=== PATIENT | male | born 1970 | race Caucasian/White ===

== ENCOUNTER 2021-03-31 06:29 | Emergency (ER) | payer MEDICAID, SELFPAY ==
[2021-03-31 07:27] VITALS: BP 165/104; PULSE 80; RESP 14; TEMP 36.8; O2SAT 98; BMI 25.3
--- NOTE | 2021-03-31 07:35 | ED_ITS ---
HPI - General Adult General Chief complaint: General Medical Stated complaint: swollen face Time Seen by Provider: 03/31/21 07:35 Source: patient Mode of arrival: ambulatory Limitations: no limitations History of Present Illness HPI narrative: Patient with no history of allergies on lisinopril for a long time noticed swelling of the lower lip since midnight . Also personal training of sore throat and postnasal drip for few weeks. No fever no chills no shortness of breath no difficulty in swallowing no difficulty in breathing no other rash Related Data Previous Rx's Medication Instructions Recorded amoxicillin 875 mg-potassium 1 tab PO BID #20 tab 03/31/21 clavulanate 125 mg tablet (Augmentin) diphenhydramine HCl 25 mg capsule 25 mg PO Q6H PRN #20 cap 03/31/21 (Benadryl) prednisone 20 mg tablet 40 mg PO DAILY #10 tab 03/31/21 Allergies Allergy/AdvReac Type Severity Reaction Status Date / Time lisinopril Allergy Angioedema Verified 03/31/21 07:40 tramadol Allergy Rash Verified 03/31/21 07:42 Review of Systems Review of Systems: Yes all other systems are reviewed and are negative [facility] Social History Social History Advance Directives: No Advance Directives Information Provided: Yes Physical Exam Vital Signs: Vital Signs: Last Vital Signs Temp 98.3 F 03/31/21 07:27 Pulse 64 03/31/21 09:12 Resp 14 03/31/21 07:27 BP 161/95 H 03/31/21 09:12 Pulse Ox 98 03/31/21 07:27 Body Mass Index 25.3 Const: General: no acute distress and well developed Orientation/consciousness: patient oriented x3 HENMT: Head: Yes normocephalic General nose exam: Abnormal mucous membranes and turbinates present (With purulent discharge) boggy and erythematous Face images: 1. Swelling of the upper lip tongue is normal slight swelling of the you will also with erythema in the posterior pharynx speech is normal swallowing Eyes: General: appearance normal, both eyes and all related structures Resp: Effort & Inspection: normal respiratory effort Auscultation: clear to auscultation bilaterally Cardio: Palpation: normal PMI Rate: regular rate Rhythm: regular rhythm Heart sounds: S1 normal heart sound present and S2 normal heart sound present GI: Inspection: Yes normal to inspection Palpation (GI): Soft to palpation and nontender Skin: General skin exam: no rashes or lesions noted Neuro: General: patient oriented x3 and no focal motor deficits Medical Decision Making MDM Narrative Medical decision making narrative: Patient with localized angioedema of the lips secondary to JACLYN-inhibitor lisinopril intake patient wash for last 5 hours no progression of the swelling involvement no difficulty in breathing patient received steroids Pepcid Benadryl and epinephrine without much relief at this time patient feels stable to go home lives very close to the hospital will come back to the hospital if notice swelling of the tongue or shortness of breath Lab Data Labs: Lab Results 03/31/21 Range/Units 07:55 S. pyogenes GrpA TARIQ Negative (Negative) Discharge Plan Discharge Clinical Impression: Angioedema due to angiotensin converting enzyme inhibitor (JACLYN-I) Sinusitis Qualifiers: Sinusitis location: maxillary Chronicity: acute Recurrence: non-recurrent Qualified Code(s): J01.00 - Acute maxillary sinusitis, unspecified Patient Disposition: Home, Self-Care Instructions: Sinusitis (ED), Angioedema (ED) Additional Instructions: Stop lisinopril as this is causing the swelling of your lips Increase the dose of amlodipine to 10 mg daily Take medication as advised Report to the ER if tongue swelling or difficulty in breathing Take antibiotic for sinus infection Prescriptions: New prednisone 20 mg tablet 40 mg PO DAILY Qty: 10 RF: 0 amoxicillin-pot clavulanate [Augmentin] 875-125 mg tablet 1 tab PO BID Qty: 20 RF: 0 diphenhydramine HCl [Benadryl] 25 mg capsule 25 mg PO Q6H PRN (Reason: allergic reaction) Qty: 20 RF: 0
[2021-03-31] MEDS: Famotidine/PF 20 MG/2 ML VIAL IVPUSH (07:50)
[2021-03-31] MEDS: diphenhydrAMINE HCL 50 MG/ML VIAL IVPUSH (07:50)
[2021-03-31] MEDS: dexAMETHasone sod phosphate 10 MG/ML VIAL IVPUSH (07:50)
[2021-03-31 08:16] LABS: Strep A Nucleic Acid Negative (Negative)
[2021-03-31 09:12] VITALS: BP 161/95; PULSE 64
[2021-03-31] MEDS: EPINEPHrine 1 MG/ML VIAL 0.3 MG IM (09:12)
[2021-03-31] MEDS: Amoxicillin/Potassium Clav 875 MG TABLET PO (11:23)
== END 2021-03-31 11:38 | disposition home or self-care (01) ==
PROVIDERS: Emergency Provider Internal Medicine
DX: T78.3XXA Angioneurotic edema, initial encounter (principal); T46.4X5A Adverse effect of angiotensin-converting-enzyme inhibitors, initial encounter; Y92.9 Unspecified place or not applicable; J01.00 Acute maxillary sinusitis, unspecified
CPT/HCPCS: 36415; 87651; 96372; 96374; 96375; 99282; 99284; J0171; J1100; J1200